=== PATIENT | female | born 1955 | race Two or more races ===

== ENCOUNTER 2021-11-04 12:30 | Emergency (ER) | payer OTHER ==
[~2021-11-04] VITALS: Ht 160 cm; Wt 79.4 kg
[2021-11-04] MEDS ORDERED: ELIQUIS5 MG PO (13:19)
[2021-11-04] MEDS ORDERED: FEMARA2.5 MG PO (13:19)
[2021-11-04] MEDS ORDERED: LEXAPRO20 MG PO (13:19)
== END 2021-11-04 17:10 | disposition left against medical advice (07) ==
LOC: ER 12:30
DX: N39.0 Urinary tract infection, site not specified (principal); Z85.3 Personal history of malignant neoplasm of breast; Z85.41 Personal history of malignant neoplasm of cervix uteri; Z98.2 Presence of cerebrospinal fluid drainage device; Z86.711 Personal history of pulmonary embolism; Z20.822 Contact with and (suspected) exposure to COVID-19